=== PATIENT | male | born 2000 | race Caucasian/White ===

== ENCOUNTER 2024-08-22 05:13 | Emergency (ER) | payer BC, MEDICAID ==
[2024-08-22] MEDS: Diphtheria,Pertussis(Acell),Tetanus Vaccine 0.5 ML Syringe IM ONE (06:21)
[2024-08-22 06:29] VITALS: BP 124/75; PULSE 82
== END 2024-08-22 06:20 | disposition home or self-care (01) ==
LOC: MW.ED 05:13
DX: S01.01XA Laceration without foreign body of scalp, initial encounter (principal); S01.81XA Laceration without foreign body of other part of head, initial encounter; X50.9XXA Other and unspecified overexertion or strenuous movements or postures, initial encounter
CPT/HCPCS: 12001; 12011; 99282

== ENCOUNTER 2024-08-28 17:09 | Emergency (ER) | payer SELFPAY ==
[2024-08-28 17:18] VITALS: BP 136/67; PULSE 79
== END 2024-08-28 17:19 | disposition home or self-care (01) ==
LOC: MW.ED 17:09
DX: S01.01XD Laceration without foreign body of scalp, subsequent encounter (principal); S01.81XD Laceration without foreign body of other part of head, subsequent encounter; Z48.02 Encounter for removal of sutures; W22.8XXD Striking against or struck by other objects, subsequent encounter
CPT/HCPCS: 99281